=== PATIENT | male | born 1990 | race Caucasian/White ===

== ENCOUNTER 2018-07-23 15:08 | Emergency (ER) | payer OTHER ==
[~2018-07-23] VITALS: Ht 170.2 cm; Wt 104.3 kg
[~2018-07-23 15:08] MED LIST: FLUO10TA PO; TRAZ-85 PO
[2018-07-23 15:27] VITALS: BP 158/103
[2018-07-23] MEDS ORDERED: MELO15TA6 PO (15:38)
[2018-07-23] MEDS ORDERED: TRAM50TA PO (15:38)
--- NOTE | 2018-07-23 15:39 | PHYS DOC ---
Past Medical History Past Medical History: Anxiety Past Surgical History: No Surgical History Alcohol Use: Occasionally Drug Use: Marijuana, Methamphetamine Adult General Chief Complaint Chief Complaint: ANKLE PROBLEM HPI HPI Patient is a 27 year old M who presents with bilateral Achilles's tendon pain L >R for the last two weeks. Patient reports he got a new pair of shoes about 1 month ago. He reports he has taken ibuprofen maybe once a week for pain. He has not worn the new shoes for 4 days now. The shoes have extra heel padding and he thinks this may be the cause of the pain. He denies injury. Review of Systems Review of Systems Constitutional: Denies fever or chills [] Musculoskeletal: Denies back pain. Bilateral Achilles's tendon pain L>R Integument: Denies rash or skin lesions [] Neurologic: Denies focal weakness or sensory changes [] All other systems were reviewed and found to be within normal limits, except as documented in this note. Allergies Allergies Allergies Coded Allergies Type Severity Reaction Last Updated Verified No Known Drug Allergies 06/16/15 No Physical Exam Physical Exam Constitutional: Well developed, well nourished, no acute distress, non-toxic appearance. [] HENT: Normocephalic, atraumatic Eyes: PERRLA, EOMI, conjunctiva normal, no discharge. [] Neck: Normal range of motion, no tenderness, supple, no stridor. [] Skin: Warm, dry, no erythema, no rash. [] Extremities: Tenderness over the Mateo's tendons cheko, ROM intact, no edema. [ ] Neurologic: Alert and oriented X 3, normal motor function, normal sensory function, no focal deficits noted. [] Psychologic: Affect normal, judgement normal, mood normal. [] Current Patient Data Vital Signs Vital Signs Date Time Temp Pulse Resp B/P (MAP) Pulse Ox O2 Delivery O2 Flow Rate FiO2 07/23/18 15:27 98.3 107 20 158/103 (121) 97 Room Air 98.3 EKG EKG [] Radiology/Procedures Radiology/Procedures [] Course & Med Decision Making Course & Med Decision Making Pertinent Labs and Imaging studies reviewed. (See chart for details) No indication for further evaluation at this time. Plan: mobic rx, tramadol rx, f/u with PCP, return precautions reviewed Jillian Disclaimer Jillian Disclaimer This electronic medical record was generated, in whole or in part, using a voice recognition dictation system. Departure Departure Impression: Primary Impression: Achilles tendinitis of both lower extremities Disposition: 01 HOME, SELF-CARE Condition: GOOD Referrals: NO PCP (PCP) Patient Instructions: Achilles Tendinitis, with [facility] Scripts Tramadol Hcl (TRAMADOL HCL) 50 Mg Tablet 50 MG PO Q6HRS PRN for PAIN, #12 TAB Prov: VALENTINA ALMEIDA APRN 07/23/18 Meloxicam (MOBIC) 15 Mg Tablet 1 TAB PO DAILY, #30 TAB 0 Refills Prov: VALENTINA ALMEIDA APRN 07/23/18 VALENTINA ALMEIDA APRN Jul 23, 2018 15:39
== END 2018-07-23 16:02 | disposition home or self-care (01) ==
LOC: ER 15:08
DX: M76.62 Achilles tendinitis, left leg (principal); M76.61 Achilles tendinitis, right leg
CPT/HCPCS: 99283